=== PATIENT | female | born 1990 | race Caucasian/White ===

== ENCOUNTER → 2020-07-15 | Outpatient (CLI) | payer BC ==
--- NOTE | 2020-07-15 16:30 | XR ---
EXAMINATION TYPE: XR knee complete LT DATE OF EXAM: 07/15/2020 COMPARISON: None HISTORY: 30-year-old female M2 5.562, left knee pain. TECHNIQUE: 3 views FINDINGS: No acute fracture, subluxation, dislocation. Extensor mechanism is intact. No knee joint effusion. IMPRESSION: No acute osseous abnormality seen.
== END | disposition home or self-care (01) ==
LOC: RADXRMAIN 16:09
PROVIDERS: ATTEND Family Medicine
DX: M25.562 Pain in left knee (principal)

== ENCOUNTER 2020-09-26 12:15 | Emergency (ER) | payer BC ==
[2020-09-26 12:36] VITALS: BP 122/90; PULSE 87; RESP 20; TEMP 98.1
[2020-09-26] MEDS ORDERED: HYDROcodone/APAP 5-325MG 1 EACH TAB PO STA (13:22)
[2020-09-26 13:25] LABS: Appearance,Urine Clear (Clear); Bacteria,Urine Occasional /hpf; Bilirubin,Urine Negative (Negative); Blood,Urine Large (Negative); Color,Urine Yellow; Glucose,Urine (UA) Negative (Negative); Ketones,Urine Negative (Negative); Leukocyte Esterase,Urine Large (Negative); Nitrite,Urine Negative (Negative); Protein,Urine Trace (Negative); RBC,Urine 1 /hpf (0-5); Specific Gravity,Urine 1.003 (1.001-1.035); Squamous Epithelial Cell,Urine <1 /hpf (0-4); Urobilinogen,Urine <2.0 mg/dL (<2.0); WBC,Urine 45 /hpf (0-5)
[2020-09-26] MEDS ORDERED: cefTRIAXone 1,000 MG VIAL (IM USE) IM STA (13:44)
[2020-09-26] MEDS ORDERED: ACET/COD 300 MG/30 MG STARTER PACK 6 TAB BTL PO STA (13:44)
--- NOTE | 2020-09-26 13:46 | ED ---
Abdominal Pain HPI - General Chief Complaint: Abdominal Pain Stated Complaint: Back/side pain Time Seen by Provider: 09/26/20 12:44 Source: patient, RN notes reviewed Mode of arrival: ambulatory Limitations: no limitations - History of Present Illness Initial Comments: 30-year-old female presents emergency Department chief complaint of dysuria, right flank pain. Patient states started 2 days ago. Patient states that she saw PCP urinalysis does not have results she states she was sent in prescription for antibiotics was started. She did take Pyridium a few days ago. Patient states that she has no history kidney stones states her prior cholecystectomy no other problems surgeries denies any chance . Patient states it power when she urinates and has been more frequent. - Related Data Home Medications Medication Instructions Recorded Confirmed Albuterol Sulfate [Proair Hfa] 2 puff INHALATION RT-QID PRN 09/26/20 09/26/20 Phentermine HCl [Adipex-P] 37.5 mg PO DAILY 09/26/20 09/26/20 metFORMIN HCL [Glucophage] 1,000 mg PO BID 09/26/20 09/26/20 Previous Rx's Medication Instructions Recorded Cephalexin [Keflex] 500 mg PO Q8HR #30 cap 09/26/20 Allergies Allergy/AdvReac Type Severity Reaction Status Date / Time No Known Allergies Allergy Verified 09/26/20 13:38 Review of Systems ROS Statement: Those systems with pertinent positive or pertinent negative responses have been documented in the HPI. ROS Other: All systems not noted in ROS Statement are negative. Past Medical History Past Medical History: Asthma Additional Past Medical History / Comment(s): MISSED AB History of Any Multi-Drug Resistant Organisms: None Reported Past Surgical History: Cholecystectomy Additional Past Surgical History / Comment(s): WISDOM TEETH Past Anesthesia/Blood Transfusion Reactions: No Reported Reaction Past Psychological History: No Psychological Hx Reported Smoking Status: Current every day smoker Past Alcohol Use History: Occasional Past Drug Use History: None Reported General Exam Limitations: no limitations General appearance: alert, in no apparent distress Head exam: Present: atraumatic, normocephalic, normal inspection Respiratory exam: Present: normal lung sounds bilaterally. Absent: respiratory distress, wheezes, rales, rhonchi, stridor Cardiovascular Exam: Present: regular rate, normal rhythm, normal heart sounds. Absent: systolic murmur, diastolic murmur, rubs, gallop, clicks GI/Abdominal exam: Present: soft, tenderness (Suprapubic), normal bowel sounds. Absent: distended, guarding, rebound, rigid Back exam: Present: CVA tenderness (R). Absent: CVA tenderness (L) Neurological exam: Present: alert Course Vital Signs 09/26/20 12:34 Temperature 98.1 F Pulse Rate 87 Respiratory 20 Rate Blood Pressure 122/90 O2 Sat by Pulse 100 Oximetry Medical Decision Making - Medical Decision Making Patient has evidence of urinary tract infection. Patient has minimal right CVA tenderness afebrile tolerating oral intake. Patient be given antibiotics as given a shot of Rocephin advised that she may have an early kidney infection. Patient is comfortable discharged with close follow-up return parameters were discussed. - Lab Data Lab Results 09/26/20 09/26/20 Range/Units 12:56 12:56 Urine Color Yellow Urine Appearance Clear (Clear) Urine pH 7.0 (5.0-8.0) Ur Specific Hasty 1.003 (1.001-1.035) Urine Protein Trace H (Negative) Urine Glucose (UA) Negative (Negative) Urine Ketones Negative (Negative) Urine Blood Large H (Negative) Urine Nitrite Negative (Negative) Urine Bilirubin Negative (Negative) Urine Urobilinogen <2.0 (<2.0) mg/dL Ur Leukocyte Esterase Large H (Negative) Urine RBC 1 (0-5) /hpf Urine WBC 45 H (0-5) /hpf Ur Squamous Epith Cells <1 (0-4) /hpf Urine Bacteria Occasional H (None) /hpf Urine HCG, Qual Not Detected (Not Detectd) Disposition Clinical Impression: UTI (urinary tract infection), Flank pain Disposition: HOME SELF-CARE Condition: Stable Instructions (If sedation given, give patient instructions): Urinary Tract Infection in Women (ED) Additional Instructions: Please return to the Emergency Department if symptoms worsen or any other concerns. Prescriptions: Cephalexin [Keflex] 500 mg PO Q8HR #30 cap Is patient prescribed a controlled substance at d/c from ED?: No Referrals: Shahla Kelly MD [Primary Care Provider] - 1-2 days Time of Disposition: 13:45
== END 2020-09-26 14:26 | disposition home or self-care (01) ==
LOC: EC 12:15
DX: N39.0 Urinary tract infection, site not specified (principal); J45.909 Unspecified asthma, uncomplicated; Z90.49 Acquired absence of other specified parts of digestive tract; F17.200 Nicotine dependence, unspecified, uncomplicated
CPT/HCPCS: 81001; 81025; 87086; 99284; 96372; J0696

== ENCOUNTER 2020-10-12 13:58 | Emergency (ER) | payer BC ==
[2020-10-12 14:09] VITALS: BP 117/75; PULSE 99; RESP 18; TEMP 97.6
[2020-10-12] MEDS ORDERED: KETOROLAC 15 MG/ML 1 ML VIAL IM STA (14:31)
--- NOTE | 2020-10-12 16:08 | XR ---
RESULT: HISTORY: toe injury TECHNIQUE: 3 views of the left toes were obtained. COMPARISON: None. FINDINGS: There is displaced dorsal avulsion fracture of the great toe distal phalangeal base with 0.5 cm fract ure fragment. No evidence of dislocation. No radiopaque foreign body. IMPRESSION: Great toe distal phalanx dorsal avulsion fracture.
--- NOTE | 2020-10-12 16:11 | ED ---
Lower Extremity Injury HPI - General Chief Complaint: Extremity Injury, Lower Stated Complaint: toe injury Time Seen by Provider: 10/12/20 14:11 Source: patient Mode of arrival: wheelchair Limitations: no limitations - History of Present Illness Initial Comments: 30-year-old female presents to emergency department with a chief complaint of a toe injury. Patient reports incident occurred yesterday when she got tangled up with her sandals and stubbed her left great toe. Patient reports it is ecchymotic and tender to touch. Reports pain is exacerbated whenever she is ambulate. Denies any paresthesias. Denies taking medication to alleviate the symptoms. - Related Data Home Medications Medication Instructions Recorded Confirmed Albuterol Sulfate [Proair Hfa] 2 puff INHALATION RT-QID PRN 09/26/20 09/26/20 Phentermine HCl [Adipex-P] 37.5 mg PO DAILY 09/26/20 09/26/20 metFORMIN HCL [Glucophage] 1,000 mg PO BID 09/26/20 09/26/20 Previous Rx's Medication Instructions Recorded Cephalexin [Keflex] 500 mg PO Q8HR #30 cap 09/26/20 Allergies Allergy/AdvReac Type Severity Reaction Status Date / Time No Known Allergies Allergy Verified 10/12/20 14:10 Review of Systems ROS Statement: Those systems with pertinent positive or pertinent negative responses have been documented in the HPI. ROS Other: All systems not noted in ROS Statement are negative. Past Medical History Past Medical History: Asthma Additional Past Medical History / Comment(s): MISSED AB History of Any Multi-Drug Resistant Organisms: None Reported Past Surgical History: Cholecystectomy Additional Past Surgical History / Comment(s): WISDOM TEETH, D&C Past Anesthesia/Blood Transfusion Reactions: No Reported Reaction Past Psychological History: No Psychological Hx Reported Smoking Status: Current every day smoker Past Alcohol Use History: Occasional Past Drug Use History: None Reported General Exam Limitations: no limitations General appearance: alert, in no apparent distress Head exam: Present: atraumatic, normocephalic, normal inspection Eye exam: Present: normal appearance, PERRL, EOMI Pupils: Present: normal accommodation ENT exam: Present: normal exam, normal oropharynx, mucous membranes moist Neck exam: Present: normal inspection, full ROM Respiratory exam: Present: normal lung sounds bilaterally. Absent: respiratory distress Cardiovascular Exam: Present: regular rate, normal rhythm, normal heart sounds Extremities exam: Present: tenderness (Tenderness the big toe), normal capillary refill, other (Sensation intact in the left foot). Absent: normal inspection (Ecchymosis on the left big toe. Minimal swelling), full ROM (Limited range of motion of the toe due to pain) Back exam: Present: normal inspection, full ROM Neurological exam: Present: alert, oriented X3 Psychiatric exam: Present: normal affect, normal mood Skin exam: Present: warm, dry, intact, normal color Course Vital Signs 10/12/20 14:05 Temperature 97.6 F Pulse Rate 99 Respiratory 18 Rate Blood Pressure 117/75 O2 Sat by Pulse 99 Oximetry Procedures - Orthopedic Splinting/Casting Injury #1 Side: left Lower Extremity Injury Location: toe Lower Extremity Immobilizer: betito tape Medical Decision Making - Medical Decision Making 30-year-old male presents emergency Department with a chief complaint of left toe injury. On physical examination, she is neurovascularly intact. There is ecchymosis and tenderness at the big toe. X-ray shows an avulsion fracture of the distal phalanx of the left big toe. Betito tape applied. Patient advised to follow with hiv prevention specialist. Return parameters discussed the patient was standing agreeable. Case discussed with Disposition Clinical Impression: Toe fracture, left Disposition: HOME SELF-CARE Condition: Stable Instructions (If sedation given, give patient instructions): Toe Fracture (ED) Additional Instructions: Follow with hiv prevention specialist. Return to emergency department if symptoms worsen. Is patient prescribed a controlled substance at d/c from ED?: No Referrals: Shahla Kelly MD [Primary Care Provider] - 1-2 days Zuhair Lindsey DO [Doctor of Osteopathic Medicine] - 1-2 days Time of Disposition: 16:11
== END 2020-10-12 16:26 | disposition home or self-care (01) ==
LOC: EC 13:58
DX: S92.422A Displaced fracture of distal phalanx of left great toe, initial encounter for closed fracture (principal); J45.909 Unspecified asthma, uncomplicated; F17.200 Nicotine dependence, unspecified, uncomplicated; Z79.51 Long term (current) use of inhaled steroids; W18.49XA Other slipping, tripping and stumbling without falling, initial encounter
CPT/HCPCS: 73660; 99283; 96372; J1885

== ENCOUNTER → 2024-03-16 | Outpatient (CLI) | payer MEDICAID | END | disposition home or self-care (01) | LOC: LABWHC1 10:57 | PROVIDERS: ATTEND Obstetrics & Gynecology | DX: Z00.00 Encounter for general adult medical examination without abnormal findings (principal) | CPT/HCPCS: 36415; 84144 ==

== ENCOUNTER → 2024-11-02 | Outpatient (CLI) | payer MEDICAID ==
[2024-11-02 15:14] LABS: Basophils # (A) 0.04 X 10*3/uL (0.00-0.10); Basophils % (A) 0.5 %; Eosinophils # (A) 0.18 X 10*3/uL (0.04-0.35); Eosinophils % (A) 2.3 %; HCT 39.9 % (37.2-46.3); HGB 13.1 g/dL (12.0-15.0); Immature Grans, Automated 0.30 %; Lymphocytes # (A) 2.73 X 10*3/uL (0.90-5.00); Lymphocytes % (A) 34.8 %; MCH 27.0 pg (27.0-32.0); MCHC 32.8 g/dL (32.0-37.0); MCV 82.1 FL (80.0-97.0); Monocytes # (A) 0.46 X 10*3/uL (0.20-1.00); Monocytes % (A) 5.9 %; NRBC Per 100 WBC 0 X 10*3/uL (0.00-0.01); Neutrophils # (A) 4.42 X 10*3/uL (1.80-7.70); Neutrophils % (A) 56.2 %; Platelet Count 342 X 10*3/uL (140-440); RBC 4.86 X 10*6/uL (4.10-5.20); RDW 11.9 % (11.5-14.5); WBC 7.85 X 10*3/uL (4.50-10.00)
[2024-11-02 15:41] LABS: ALT 31 U/L (8-44); AST 23 U/L (13-35); Albumin 4.3 g/dL (3.8-4.9); Albumin/Globulin Ratio 1.65 Ratio (1.60-3.17); Alkaline Phosphatase 94 U/L (41-126); Anion Gap 13.90 mmol/L (4.00-12.00); BUN/Creat Ratio 19.17 Ratio (12.00-20.00); Blood Urea Nitrogen 11.5 mg/dL (9.0-27.0); Calcium 9.4 mg/dL (8.7-10.3); Carbon Dioxide 23.1 mmol/L (21.6-31.8); Chloride 102 mmol/L (96-109); Cholesterol 213.00 mg/dL (0.00-200.00); Globulin 2.6 g/dL (1.6-3.3); Glucose 121 mg/dL (70-110); HDL Cholesterol 37.00 mg/dL (40.00-60.00); LDL Cholesterol,Calculated 138.0 mg/dL (0.0-131.0); Potassium 4.2 mmol/L (3.5-5.5); Rheumatoid Factor, Qnt <15 IU/mL (0-15); Sodium 139 mmol/L (135-145); Total Protein 6.9 g/dL (6.2-8.2); Triglycerides 190.00 mg/dL (0.00-149.00); VLDL Calculation 38.00 mg/dL (5.00-40.00)
[2024-11-02 15:45] LABS: Hepatitis C IgG Antibody Nonreactive (Nonreactive)
== END | disposition home or self-care (01) ==
LOC: LABWHC1 11:19
PROVIDERS: ATTEND Family Medicine
DX: Z00.00 Encounter for general adult medical examination without abnormal findings (principal); Z11.59 Encounter for screening for other viral diseases; L43.9 Lichen planus, unspecified
CPT/HCPCS: 36415; 80053; 80061; 84443; 85025; 85652; 86038; 86431; 86803